=== PATIENT | female | born 1950 | race Caucasian/White ===

== ENCOUNTER → 2016-05-22 | Outpatient (CLI) | payer OTHER, MEDICARE | LOC: MOB LAB 13:47 | PROVIDERS: ATTEND Nurse Practitioner Family | DX: M79.672 Pain in left foot (principal) | CPT/HCPCS: 36415; 84550 ==

== ENCOUNTER → 2016-10-03 | Outpatient (CLI) | payer OTHER, MEDICARE ==
--- NOTE | 2016-10-03 19:55 | DI ---
PA /LATERAL CHEST X-RAY, 10/03/2016 2:50 PM : Clinical History: Shortness of breath Previous Exam: February 24, 2006 There is no acute soft tissue or bony abnormality. Heart size is normal. Lungs are clear. Mediastinal structures are normal. There are no pulmonary nodules. IMPRESSION: Normal chest x-ray.
== END ==
LOC: MOB RAD 14:46
PROVIDERS: ATTEND Nurse Practitioner Family
DX: R06.02 Shortness of breath (principal)
CPT/HCPCS: 71020

== ENCOUNTER → 2016-10-04 | Outpatient (CLI) | payer OTHER, MEDICARE ==
[2016-10-04 08:37] LABS: BASOPHILS # (AUTO) 0.06 10*3/UL; BASOPHILS % (AUTO) 0.9 % (0-1); EOSINOPHILS # (AUTO) 0.53 10*3/UL; EOSINOPHILS % (AUTO) 8.2 % (0-8); HEMATOCRIT 42.3 % (37.0-47.0); HEMOGLOBIN 14.2 g/dL (12.0-16.0); LYMPHOCYTES # (AUTO) 2.11 10*3/uL; MEAN CORPUSCULAR HEMOGLOBIN 31.1 PG (27-31); MEAN CORPUSCULAR HGB CONC 33.6 g/dL (33-37); MEAN CORPUSCULAR VOLUME 92.6 FL (81-99); MEAN PLATELET VOLUME 12.1 FL (7.4-12.2); MONOCYTES # (AUTO) 0.52 10*3/UL (0.3-0.8); NEUTROPHILS # (AUTO) 3.24 10*3/UL; NEUTROPHILS % (AUTO) 50.1 % (50-80); RED BLOOD COUNT 4.57 10^6/uL (4.20-5.40)
[2016-10-04 08:44] LABS: PLATELET MORPHOLOGY COMMENT NORMAL MORPHOLOGY (NORM); RBC MORPHOLOGY COMMENT NORMAL MORPHOLOGY (NORM); WBC MORPHOLOGY COMMENT NORMAL MORPHOLOGY (NORM)
[2016-10-04 09:54] LABS: BLOOD UREA NITROGEN 25 mg/dL (7-22); BUN/CREATININE RATIO 27.77 (6-20); CALCIUM 10.2 mg/dL (8.7-10.7); CHOL/HDL RATIO 2.34 RATIO (0-4.0); EST GLOMERULAR FILTRATION > 60 (>60 ml/min/1.73m(2)); HDL CHOLESTEROL 106 mg/dL (40-150); SERUM ALBUMIN 4.1 g/dL (3.5-4.8); SERUM CHOLESTEROL 249 mg/dL (120-200)
== END ==
LOC: LAB 08:17
PROVIDERS: ATTEND Nurse Practitioner Family
DX: R06.02 Shortness of breath (principal); I10 Essential (primary) hypertension; E03.9 Hypothyroidism, unspecified; M25.572 Pain in left ankle and joints of left foot
CPT/HCPCS: 36415; 80053; 80061; 84443; 84550; 85025; 85652; 86038; 86431

== ENCOUNTER → 2016-10-09 | Outpatient (CLI) | payer OTHER, MEDICARE | LOC: MMPC 09:00 | PROVIDERS: ATTEND Nurse Practitioner Family | DX: J44.9 Chronic obstructive pulmonary disease, unspecified (principal); M79.1 Myalgia; M1A.0720 Idiopathic chronic gout, left ankle and foot, without tophus (tophi) | CPT/HCPCS: 99213; G0463 ==